=== PATIENT | male | born 1965 | race Caucasian/White ===

== ENCOUNTER 2016-11-26 10:34 | Day surgery (SDC) | payer OTHER ==
--- NOTE | 2016-11-23 15:55 | PREOPHP ---
DATE OF ADMISSION: 11/26/2016 PREOPERATIVE INTERNAL MEDICINE CONSULTATION/MEDICAL HISTORY AND PHYSICAL Patient to have surgery with Dr. Guy Boston, 11/26/2016. CONSULTATION REQUESTED BY: Dr. Guy Boston for medical evaluation and clearance of a 51-year-old gentleman about to undergo surgery. Thank you, Dr. Boston, for allowing us to participate in the care of this patient. HISTORY OF PRESENT ILLNESS: Robbi Valera is a 51-year-old gentleman who has had problems with his left ankle secondary a large os trigonum. He is currently being admitted for correction of the above problem. In terms of his past surgical history, he has had hernia repairs, right and left, inguinal hernias ,as well as an appendectomy which was done laparoscopically. Other than that, he has had no major surgery. He did fracture his foot in the past. Other than that, he has been quite generally healthy; however, he does have some medical issues which include diabetes mellitus type 2 and hemochromatosis as well as some hypertension. MEDICATIONS: He is currently taking the following medications: 1. Metformin 500 mg a day. 2. Losartan 25 mg a day. Also getting phlebotomies periodically. ALLERGIES: HE IS ALLERGIC TO: 1. PENICILLIN. 2. ASPIRIN. Otherwise, he has been quite healthy. SOCIAL HISTORY: Patient is single, has no children. He does not smoke. Alcohol socially. Does drink coffee. 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 FAMILY HISTORY: Both parents are alive. Father is 80, has diabetes, also he has had head and neck cancer from which he has recovered. Mother is 76, has hypertension. One sister is in good health. There is a family history of diabetes, heart, cancer, hypertension, and stroke. REVIEW OF SYSTEMS: HEENT: Unremarkable. CARDIORESPIRATORY: Denies any chest pain or shortness of breath. GASTROINTESTINAL: No melena or hematemesis. GENITOURINARY: No urgency or frequency. MUSCULOSKELETAL: Positive for left ankle and foot pain. NEUROPSYCHIATRIC: Unremarkable. GENERAL HEALTH: As above. PHYSICAL EXAMINATION: VITAL SIGNS: The patient's blood pressure was 120/80. Pulse was 80 and regular. Respirations were 18, temperature 98.5. Height 6 feet 7 inches, weight 269 pounds. GENERAL: The patient was noted to be a well-developed, well-nourished male, alert and cooperative, in no apparent acute distress, oriented to time, place, and person. HEAD, EARS, EYES, NOSE, AND THROAT: Head was atraumatic. Eyes: Pupils were equal, reactive to light and accommodation. Fundi were benign. Tympanic membranes were unremarkable. Nose was negative. Mouth was unremarkable. Fair oral hygiene was present. NECK: Supple without any rigidity. Trachea was midline. Thyroid was unremarkable. Neck veins were flat. Carotid pulses were equal. No bruits were heard. BACK: Unremarkable. CHEST: Symmetrical. BREASTS AND AXILLARY: did not reveal any masses. LUNGS: Clear to percussion and auscultation. HEART: PMI is 5th intercostal space at the midclavicular line. A regular sinus rhythm was noted. No significant murmurs, rubs, or gallops being elicited. ABDOMEN: Soft, good bowel sounds weeries werere noted. No significant organomegaly, masses, or tenderness..Scars from prio surgeries were noted. GENITALIA: Normal male external genitalia. RECTAL AND PROSTATIC EXAM: Per PCP. EXTREMITIES: Did not reveal any clubbing, edema, or cyanosis. Peripheral pulses were physiologic. SKIN: Moist and warm without any eruptions. No gross lymphadenopathy was noted. NEUROLOGIC EXAM: Grossly intact. IMPRESSION: 1. Large os trigonum, left ankle and subtalar area. 2. Diabetes mellitus type 2. 3. Hypertension. 4. Hemochromatosis. 5. Stable health. LABORATORY DATA: Review of the laboratory and other data revealed the following : The patient's chemistry panel revealed a random glucose of 110. Electrolytes , BUN, creatinine, liver function tests were basically normal other than ALT and normal electrolytes, BUN and creatinine and calcium and total protein. Patient's liver function tests revealed an elevated ALT or SGPT as well as a minor elevation of AST or SGOT. Serum iron was elevated as could be expected with hemochromatosis at 235 mcg/dL. CBC, sed rate, UA, PT, and PTT were normal. The patient's EKG was normal as was his chest x-ray. DISCUSSION: Dr. Boston I see no contraindication in this patient undergoing current proposed surgery under desired form of anesthesia. I feel he is a suitable candidate at this particular point in time. Should any medical problems arise during his stay at [facility], we will be more than happy to follow him up at the appropriate times. Thank you again, Dr. Boston, for allowing us to participate in the care of this patient. Dictated By: SANTOSH LACY/JC Conf#: [id number] DID#: [id number] MTDD
[~2016-11-26] VITALS: Ht 200.7 cm; Wt 121.8 kg
[2016-11-26] VITALS (13 sets, daily range): BP systolic 121–153; BP diastolic 69–87; PULSE 66–88; RESP 9–19; Ht 200.7 cm; Wt 121.8 kg
[2016-11-26] MEDS ORDERED: LOSA50TA6 PO (11:07)
[2016-11-26] MEDS ORDERED: METF500T4 PO (11:07)
[2016-11-26] MEDS ORDERED: TEST75GE TD (11:11)
[2016-11-26] MEDS ORDERED: TRAZ50TA18 PO (11:11)
[2016-11-26] MEDS ORDERED: SOD CHLORIDE 0.9% 1,000 ML IV SCH (13:14)
--- NOTE | 2016-11-26 13:14 | HPN ---
Date/Time of Note Date/Time of Note DATE: 11/26/16 TIME: 13:14 Interval H&P Admission Note Pt. seen H&P reviewed: No system changes AYALA ANDERSON MD November 26, 2016 13:14
[2016-11-26] MEDS ORDERED: ROPIVACAINE 0.5 % 30 ML VIAL ONE ×2 (13:20→13:30)
[2016-11-26] MEDS ORDERED: BUPIVACAINE 0.25%/EPI (SDV) 30 ML INJ ONE (13:20)
[2016-11-26] MEDS ORDERED: MIDAZOLAM 1 MG/ML 2 ML INJ ONE (13:20)
[2016-11-26] MEDS ORDERED: POVIDONE IODINE 10% 28.4 GM OINT ONE (13:30)
[2016-11-26] MEDS ORDERED: OXYCODONE/ACETAMINOPHEN (5/325) TAB PO PRN ×2 (13:30)
[2016-11-26] MEDS ORDERED: ONDANSETRON 4 MG INJ IV PRN (13:30)
[2016-11-26] MEDS ORDERED: POLYMYXIN/BACITRACIN 1L IRRIG ONE (13:30)
[2016-11-26] MEDS ORDERED: morphine 2 MG INJ IV PRN (13:30)
[2016-11-26] MEDS ORDERED: LIDOCAINE 2% (SDV) 5 ML INJ ONE (13:57)
[2016-11-26] MEDS ORDERED: PROPOFOL 40 ML ONE (13:57)
[2016-11-26] MEDS ORDERED: PHENYLephrine (100 MCG/ML) 5ML SYG ONE (14:04)
[2016-11-26] MEDS ORDERED: morphine 10 MG INJ ONE (15:19)
[2016-11-26] MEDS ORDERED: NEOSTIGMINE 3 MG/3 ML SYRINGE ONE (16:57)
[2016-11-26] MEDS ORDERED: GLYCOPYRROLATE 1 MG INJ ONE (16:57)
[2016-11-26] MEDS ORDERED: METOCLOPRAMIDE 10 MG INJ ONE (16:59)
[2016-11-26] MEDS ORDERED: DEXAMETHASONE 4 MG/ML 1 ML INJ ONE (16:59)
[2016-11-26] MEDS ORDERED: ONDANSETRON 4 MG INJ ONE (16:59)
[2016-11-26] MEDS ORDERED: CEFAZOLIN 1 GM INJ ONE ×3 (17:00→17:07)
--- NOTE | 2016-11-26 17:33 | RADRPT ---
PROCEDURE: Intraoperative imaging of the left ankle with fluoroscopy. CLINICAL INDICATION: Left ankle pain. Intraoperative. TECHNIQUE: 2 images of the left ankle were obtained in the operating room with an image intensifie r. No radiologist was in attendance. 0.1 minutes of fluoroscopy time was used. COMPARISON: No prior study is available for comparison. FINDINGS: Images demonstrate surgical instruments overlying the talus. IMPRESSION: 1. Intraoperative imaging of the left ankle. RPTAT: QQ .Federico Olmedo MD, MD Date Time Electronically viewed and signed by .Federico Olmedo MD, MD on 11/26/2016 17:33 .R/
--- NOTE | 2016-11-26 19:44 | OPR ---
DATE OF OPERATION: 11/26/2016 PREOPERATIVE DIAGNOSES: 1. Posterior impingement, left ankle with a very large os trigonum abutting against the talus and c alcaneus. 2. Sinus tarsi syndrome. 3. Soft tissue impingement of the ankle. 4. Peroneal tenosynovitis. 5. Peroneal tendon tear. POSTOPERATIVE DIAGNOSES: 1. Posterior impingement, left hindfoot. 2. Sinus tarsi syndrome of subtalar joint. 3. Soft tissue impingement of left ankle. 4. Peroneal tendon tenosynovitis without any obvious tears. OPERATION PERFORMED: 1. Arthroscopy left ankle with soft tissue distraction. 2. Extensive debridement of the ankle. 3. Arthroscopy of left subtalar joint with soft tissue distraction. 4. Extensive debridement of the subtalar joint. 5. Excision of os trigonum, which was extremely large. 6. Peroneal tendoscopy and debridement with a peroneal tenosynovectomy. 7. Short-leg splint. 8. Use of fluoroscopy to verify excision of os trigonum. SURGEON: Ayala Boston MD SKIN PEELING MACHINE OPERATOR: Anand Ahn MD ANESTHESIA: General with popliteal block. TOURNIQUET TIME: 135 minutes. DESCRIPTION OF PROCEDURE: The patient taken to the operating room and placed supine. Satisfactory popliteal block was given, satisfactory general anesthesia administered, 2 grams Ancef intravenously . The left thigh was secured in the thigh florentino. Arms were carefully padded. Superficial peronea l nerve was marked out. The left leg was prepped and draped in the usual manner. We approached the peroneal tendons first. The inferior and superior portals of the peroneal tendons were established using extreme caution. We entered the peroneal tendon sheath from the inferior. The 1.9 arthroscope was used. The tendon sheath had tenosynovitis, but there were no obvious tears in the peroneal brevis or peroneus longus, either superiorly or inferiorly. We looked from both ang les and did not see an abnormality. Shaver was inserted. Tenosynovectomy was performed along the p eroneal tendon sheath. We did not feel anything further was necessary and that no further explorati on was needed of the peroneal tendons because they looked intact. Our attention was turned to the subtalar joint. Standard anterolateral, central, and posterolateral portals were used in the subtalar joint. Because of the very large os trigonum, we had to be caref ul where we established our portal posteriorly. There was a lot of fraying of the sinus tarsi and l ot of synovitis. The lateral gutter had synovitis. The posterior gutter had significant amount of synovitis and there was also a large tear of the posterior talofibular ligament. The os trigonum wa s very large, but also loose. The synchondrosis was loose. There was very little attachment to syn chondrosis. The shaver was inserted. The sinus tarsi was debrided. The cervical ligament and the interosseous ligament were debrided as well as were the retinacular ligaments. The lateral gutter w as debrided. The talocalcaneal articulation was smooth and glistening anteriorly, centrally, but po steriorly there was some irregularity, but more along the calcaneus where the os trigonum had been i mpinging. Ligament was debrided posteriorly and the synovectomy was performed being very careful no t to injure neurovascular structures throughout the operation. We peeled off the os trigonum superi madeleine and inferiorly with the elevator and a shaver. We then, because of the extreme size of the os trigonum, took a bur and burred it down to a smaller size. We then freed it up medially. We were a ble to see the FHL and stayed away from it. We then placed a very large pituitary rongeur inside an d grabbed os trigonum and removed it in total. The fluoroscope was brought in. The fluoroscopic la teral showed complete removal of the os trigonum. We burred any potential bony prominences that wer e sharp along the FHL. The FHL tendoscopy was done. The tendon looked entirely intact without sign ificant fraying. After completely debriding the area of the posterior subtalar joint, our attention was then turned to the ankle. Our attention was then turned to the ankle. Standard anteromedial, anterolateral, and posterolatera l portals were used, using extreme caution. There was synovitis in the medial gutter. The central overhang had some mild fraying. Syndesmotic ligament was intact with synovitis and there was modera te synovitis in the lateral gutter, but the anterior talofibular ligament looked intact. There was also a small area anteriorly with some grade 4 chondromalacia very close to the neck of the talus. The joint was fairly tight in the ankle. It was smooth and glistening, centrally and posteriorly; h owever, there was an unusual area posterolateral in the gutter where it looked like the patient may have had an injury to the articular surface and then it healed with fibrocartilage. This did not re ally show up well on the MRI scan preoperatively. We did not feel like anything further was necessa ry to treat this particular area. Using the 30-degree and 70-degree arthroscope, we debrided the an kle in the medial gutter, lateral gutter, anteriorly, centrally, and posteriorly. After complete de bridement, the ankle was irrigated clear. Wounds were closed with 4-0 black nylon. The saphenous n erve block was done with 0.5% ropivacaine. Compression dressing applied with posterior splint in ne utral position. At the end of procedure, sponge and needle count was correct. The patient tolerate d procedure well. Dictated By: AYALA FERRARI/JC Conf#: [id number] DID#: [id number]
== END 2016-11-26 19:13 | disposition home or self-care (01) ==
LOC: SDS 10:34
PROVIDERS: ATTEND Orthopaedic Surgery
DX: M25.872 Other specified joint disorders, left ankle and foot (principal); M25.572 Pain in left ankle and joints of left foot; M65.862 Other synovitis and tenosynovitis, left lower leg; I10 Essential (primary) hypertension; E11.9 Type 2 diabetes mellitus without complications
CPT/HCPCS: 29891; 73610; 82962; J0690; J1100; J2250; J2270; J2370; J2405; J2710; J2765; J2795; J3010